=== PATIENT | male | born 1990 | race Caucasian/White ===

== ENCOUNTER 2017-07-14 11:21 | Inpatient (IN) | payer OTHER ==
[~2017-07-14] VITALS: Ht 170.2 cm; Wt 75.6 kg
[2017-07-14] VITALS (9 sets, daily range): BP systolic 101–136; BP diastolic 49–72; PULSE 61–85; TEMP 97.1–98.6
[~2017-07-14 11:21] MED LIST: ACETAMINOPHEN W1 TA6 PO; ADDERALL15 MG PO; ADHD; AMOXICILLIN 50500 MG PO; CEFTIN500 MG PO; CEPHALEXIN500 M1 PO; CIPRO500 MG PO; CONCERTA18 MG PO; FLOMAX 0.40.4 MG/CAP PO; LEVAQUIN 750MG750 M1 PO; LORTAB 5/500 501 TAB PO; MULTIPLE VITAMI1 CAP PO; MVI; NORCO 325 MG-51 TAB PO; PHENERGAN 25 TA25 MG PO; PHENERGAN W/CO120 M1 PO; PREDNISONE20 MG PO; PROAIR HFA0.09 MG/AC IH; ULTRAM 50MG TAB50 MG PO; VENTOLIN0.09 MG IH; VOLTAREN 75 DR75 MG PO; ZITHROMAX 250M250 MG PO; ZOFRAN 4MG T4 MG/TAB PO
[2017-07-14 12:33] LABS: HEMATOCRIT 37.1 % (42.0-52.0); HEMOGLOBIN 12.8 g/dl (13.5-18.0); MEAN CELL VOLUME 90 fl (80.0-100.0); MEAN CORPUSCULAR HEMOGLOBIN 31 pg (27.0-31.0); MEAN CORPUSCULAR HGB CONC 35 g/dl (33.0-37.0); MEAN PLATELET VOLUME 10.4 fl (7.4-10.4); PLATELET COUNT 270 K/mm3 (130-400); RED BLOOD COUNT 4.13 M/mm3 (4.20-5.60)
[2017-07-14 12:36] LABS: ADD PATHOLOGY DIFF REVIEW NO
[2017-07-14 12:42] LABS: BAND 11 % (0-10); METAMYELOCYTE 1 % (0-0); NEUTROPHILS 78 % (42.0-75.2); PLATELET ESTIMATE NORMAL (NORMAL); TOTAL CELLS COUNTED 100
[2017-07-14 12:46] LABS: ALANINE AMINOTRANSFERASE 37 U/L (21-72); ALBUMIN 4.5 gm/dL (3.5-5.0); ALKALINE PHOSPHATASE 79 U/L (50-136); ANION GAP 10 mmol/L (7-16); BILIRUBIN,TOTAL 0.5 mg/dL (0.0-1.0); BLOOD UREA NITROGEN 10 mg/dL (9-20); CALCIUM 9.4 mg/dL (8.4-10.2); CARBON DIOXIDE 27 mmol/L (22-30); CHLORIDE 100 mmol/L (98-107); CREATININE, serum 0.65 mg/dL (0.66-1.25); GLUCOSE 90 mg/dL (74-106); POTASSIUM 3.4 mmol/L (3.4-5.0); SODIUM 137 mmol/L (137-145); TOTAL PROTEIN 7.6 gm/dL (6.4-8.2)
[2017-07-14 12:47] LABS: C-REACTIVE PROTEIN < 0.5 mg/dL (0.0-0.9)
[2017-07-14 12:52] LABS: PH 7 (5-8); SQUAMOUS EPITHELIAL None Seen /hpf; URINE APPEARANCE Clear; URINE BACTERIA None Seen /hpf; URINE BILIRUBIN Negative (NEGATIVE); URINE BLOOD Negative (NEGATIVE); URINE COLOR Yellow; URINE GLUCOSE Negative (NEGATIVE); URINE KETONE Trace (NEGATIVE); URINE UROBILINOGEN Negative (NEGATIVE); URINE WBC 0-2 /hpf
[2017-07-15 01:24] VITALS: BP 104/61; PULSE 60; TEMP 98.2
[2017-07-15 02:00] VITALS: BP 112/68; PULSE 64; TEMP 98.2
[2017-07-15 05:04] VITALS: BP 110/51; PULSE 61; TEMP 98.5
[2017-07-15 09:19] VITALS: BP 116/53; PULSE 58; TEMP 98.1
[2017-07-15 13:13] VITALS: BP 111/59; PULSE 79; TEMP 98.5
== END 2017-07-15 17:03 | disposition home or self-care (01) | DRG 343 ==
LOC: COL.ER 11:21 → SURG 13:44
PROVIDERS: Nurse Practitioner; Surgery
PROC: 0DTJ4ZZ Resection of Appendix, Percutaneous Endoscopic Approach (ICD-10-PCS; principal; 2017-07-14 18:15)
DX: K35.80 Unspecified acute appendicitis (principal); F17.210 Nicotine dependence, cigarettes, uncomplicated
CPT/HCPCS: J1100; J1170; J1885; J2270; J2405; J2543; J2704; J2710; J2765; J3010; J7030; J7050; Q9967

== ENCOUNTER 2017-10-24 19:48 | Emergency (ER) | payer BC ==
[~2017-10-24] VITALS: Ht 170.2 cm; Wt 56.8 kg
[2017-10-24 19:51] VITALS: BP 148/83; TEMP 97.2
[2017-10-24] MEDS ORDERED: NORCO 325 MG-51 TAB PO (20:19)
[2017-10-24] MEDS ORDERED: AMOXICILLIN 8751 TAB PO (20:19)
[2017-10-24 20:36] VITALS: PULSE 76
== END 2017-10-24 20:37 | disposition home or self-care (01) ==
LOC: COL.ER 19:48
DX: S02.5XXA Fracture of tooth (traumatic), initial encounter for closed fracture (principal); K02.9 Dental caries, unspecified; F12.90 Cannabis use, unspecified, uncomplicated; F17.210 Nicotine dependence, cigarettes, uncomplicated; X58.XXXA Exposure to other specified factors, initial encounter

== ENCOUNTER 2019-05-28 16:22 | Emergency (ER) | payer BC ==
[~2019-05-28] VITALS: Ht 170.2 cm; Wt 59.1 kg
[~2019-05-28 16:22] MED LIST changes: +AMOXICILLIN 8751 TAB PO
[2019-05-28 16:33] VITALS: TEMP 97.5
[2019-05-28 17:10] LABS: COLLECTION METHOD CLEAN CATCH
[2019-05-28 17:26] LABS: MUCOUS Present /lpf; PH 7 (5-8); SQUAMOUS EPITHELIAL None Seen /hpf; URINE APPEARANCE Clear; URINE BACTERIA None Seen /hpf; URINE BILIRUBIN Negative (NEGATIVE); URINE BLOOD 3+ (NEGATIVE); URINE COLOR Yellow; URINE GLUCOSE Negative (NEGATIVE); URINE KETONE Negative (NEGATIVE); URINE LEUKOCYTE ESTERASE Negative (NEGATIVE); URINE NITRATE Negative (NEGATIVE); URINE PROTEIN(semi-quant) Negative (NEGATIVE); URINE RBC >50 /hpf; URINE UROBILINOGEN Negative (NEGATIVE)
[2019-05-28] MEDS ORDERED: FLOMAX 0.40.4 MG/CAP PO (18:16)
[2019-05-28] MEDS ORDERED: NORCO 325 MG-51 TAB PO (18:16)
[2019-05-28 18:45] VITALS: BP 122/62; PULSE 78
== END 2019-05-28 18:45 | disposition home or self-care (01) ==
LOC: COL.ER 16:22
PROVIDERS: Emergency Medicine
DX: N50.812 Left testicular pain (principal); R31.9 Hematuria, unspecified; F17.210 Nicotine dependence, cigarettes, uncomplicated; F12.90 Cannabis use, unspecified, uncomplicated; Z90.49 Acquired absence of other specified parts of digestive tract; Z87.442 Personal history of urinary calculi

== ENCOUNTER 2021-06-19 21:23 | Emergency (ER) | payer BC ==
[~2021-06-19] VITALS: Ht 170.2 cm; Wt 59.1 kg
[2021-06-19 23:00] VITALS: BP 122/69; PULSE 78; TEMP 98.1
== END 2021-06-19 23:00 | disposition home or self-care (01) ==
LOC: COL.ER 21:23
DX: T65.891A Toxic effect of other specified substances, accidental (unintentional), initial encounter (principal); T20.56XA Corrosion of first degree of forehead and cheek, initial encounter; T22.411A Corrosion of unspecified degree of right forearm, initial encounter